=== PATIENT | female | born 1970 | race African-American/Black ===

== ENCOUNTER 2016-08-30 22:24 | Inpatient (IN) | payer OTHER ==
[2016-08-30 22:53] VITALS: BMI 30.6
[2016-08-31] MEDS ORDERED: HYDROmorphone HCL CARPU-JECT 1 MG/1 ML DISP.SYRIN IVPB PRN (00:51)
[2016-08-31] MEDS ORDERED: LACTATED RINGERS SOLUTION 1,000 ML IV SCH ×4 (01:00→14:38)
[2016-08-31] MEDS ORDERED: HYDROmorphone HCL CARPU-JECT 1 MG/1 ML DISP.SYRIN ONE (01:05)
--- NOTE | 2016-08-31 01:05 | PDOC ---
History of Present Illness <Doug Brown - Last Filed: 08/31/16 01:05> - History of Present Illness Initial Comments: 08/31/16 01:06 Patient is a 45 year old female with significant medical hx of HTN, uterine fibroids and endometriosis who has been sent to the ED by HEALTH SAFETY COORDINATOR for abdominal pain related to endometriosis. The patient is scheduled for surgery in the morning by Dr. Cid. The patient complains of ongoing fever for the past several weeks. HEALTH SAFETY COORDINATOR: Palak Martin MD <Ofelia Souza - Last Filed: 08/31/16 02:07> - General Chief Complaint: Vaginal Bleeding Stated Complaint: PCP ADMIT Time Seen by Provider: 08/30/16 23:33 Past History - Past Medical History HTN: Yes Other medical history: endometriosis - Immunization History Immunization Up to Date: Yes - Psycho/Social/Smoking Cessation Hx Anxiety: No Suicidal Ideation: No Smoking History: Never smoked Have you smoked in the past 12 months: No Information on smoking cessation initiated: No Hx Alcohol Use: No Drug/Substance Use Hx: No Substance Use Type: None <Doug Brown - Last Filed: 08/31/16 01:05> <Ofelia Souza - Last Filed: 08/31/16 02:07> - Past Medical History Allergies/Adverse Reactions: Allergies Allergy/AdvReac Type Severity Reaction Status Date / Time No Known Allergies Allergy Verified 08/30/16 22:53 Home Medications: Ambulatory Orders Diltiazem HCl [Diltiazem ER] 360 mg PO DAILY 07/14/15 Review of Systems - Review of Systems Comments:: 08/31/16 01:09 CONSTITUTIONAL: Fever. No chills, no fatigue EYES: No visual changes ENT: No ear pain, no sore throat CARDIOVASCULAR: No chest pain, no palpitations RESPIRATORY: No cough, no SOB GI: Abdominal pain. No nausea, no vomiting, no constipation, no diarrhea GENITOURINARY: No dysuria, no frequency, no hematuria MUSKULOSKELETAL: No backpain, no joint pain, no myalgias SKIN: No rash NEURO: No headache <Ofelia Souza - Last Filed: 08/31/16 02:07> *Physical Exam - Vital Signs Last Vital Signs Temp Pulse Resp BP Pulse Ox 99.7 F H 94 H 19 141/71 99 03/22/17 22:50 08/30/16 22:50 08/30/16 22:50 08/30/16 22:50 08/30/16 22:50 <Doug Brown - Last Filed: 08/31/16 01:05> - Vital Signs Last Vital Signs Temp Pulse Resp BP Pulse Ox 99.7 F H 94 H 19 141/71 99 08/30/16 22:50 08/30/16 22:50 08/30/16 22:50 08/30/16 22:50 08/30/16 22:50 - Physical Exam Comments: 08/31/16 01:09 CONSTITUTIONAL: Well-appearing; well-nourished; in no apparent distress HEAD: Normocephalic; atraumatic EYES: PERRL; EOM intact ENMT: External appears normal; normal oropharynx NECK: Supple; non-tender; no cervical lymphadenopathy CARD: Normal S1, S2; no murmurs, rubs, or gallops RESP: Normal chest excursion with respiration; breath sounds clear and equal bilaterally; no wheezes, rhonchi, or rales ABD: Soft, non-distended; non-tender; no palpable organomegaly, no palpable hernias EXT: Normal ROM in all four extremities; non-tender to palpation; distal pulses intact SKIN: Warm, dry, no rash NEURO: No focal neurological deficiencies. <Ofelia Souza - Last Filed: 08/31/16 02:07> Heart Score/ECG Review #1 08/31/16 02:07 Normal sinus rhythm at 97 bpm Normal ECG <Ofelia Souza - Last Filed: 08/31/16 02:07> ED Treatment Course - LABORATORY CBC & Chemistry Diagram: 08/31/16 00:52 08/31/16 00:52 <Ofelia Souza - Last Filed: 08/31/16 02:07> *DC/Admit/Observation/Transfer - Discharge Dispostion Admit: Yes <Doug Brown - Last Filed: 08/31/16 01:05> - Attestations Scribe Attestion: 08/31/16 01:10 Documentation prepared by Ofelia Souza, acting as medical videographer for Doug Brown MD. <Ofelia Souza - Last Filed: 08/31/16 02:07> Diagnosis at time of Disposition: Endometrioma Abdominal pain Qualifiers: Abdominal location: lower abdomen, unspecified Qualified Code(s): R10.30 - Lower abdominal pain, unspecified - Referrals Referrals: STAFF,NOT ON [Primary Care Provider] -
[2016-08-31 01:08] LABS: BASOPHIL 0.8 % (0-2.0); EOSINOPHIL 0.5 % (0-4.5); MCH 27.4 pg (25.7-33.7); MCHC 32.5 g/dl (32.0-36.0); MEAN CELL VOLUME 84.2 fl (80-96); MEAN PLT VOLUME 6.8 fl (7.5-11.1); PLATELET COUNT 469 K/MM3 (134-434); RDW 15.9 % (11.6-15.6); WHITE BLOOD COUNT 11.9 K/mm3 (4.0-10.0)
[2016-08-31 01:33] LABS: INR 1.42 (0.82-1.09); PROTHROMBIN TIME (PATIENT) 15.7 SEC (9.98-11.88)
[2016-08-31 01:46] LABS: ALBUMIN 2.5 g/dl (3.4-5.0); BILIRUBIN,TOTAL 0.2 mg/dL (0.2-1.0); CALCIUM 8.6 mg/dL (8.5-10.1); CREATININE 1.5 mg/dL (0.55-1.02); TOT PROT 7.1 g/dl (6.4-8.2)
--- NOTE | 2016-08-31 08:32 | HP ---
History & Physical Update - History History: No Change - Physical Physical: No Change - Assessment Assessment: No Change - Plan Plan: No Change
[2016-08-31] MEDS ORDERED: VASOPRESSIN 20 UNITS/ML VIAL IV ONE (10:11)
[2016-08-31] MEDS ORDERED: DEXAMETHASONE SOD PHOSPHATE 4 MG/1 ML VIAL ONE (10:22)
[2016-08-31] MEDS ORDERED: SODIUM CHLORIDE 0.9% P/F 10 ML VIAL IJ ONE (10:22)
[2016-08-31] MEDS ORDERED: KETOROLAC TROMETHAMINE 30 MG/1 ML VIAL ONE (10:22)
[2016-08-31] MEDS ORDERED: ONDANSETRON 4 MG/2 ML VIAL ONE (10:22)
[2016-08-31] MEDS ORDERED: ceFAZolin SODIUM 1 GM VIAL ONE ×2 (10:22→11:04)
[2016-08-31] MEDS ORDERED: MIDAZOLAM HCL 2 MG/2 ML SINGLE DOSE VIAL ONE (10:23)
[2016-08-31] MEDS ORDERED: ROCURONIUM BROMIDE 50 MG/5 ML VIAL ONE (10:23)
[2016-08-31] MEDS ORDERED: ceFAZolin SODIUM 1 GM VIAL IVPB ONE ×2 (10:41)
[2016-08-31] MEDS ORDERED: GENTAMICIN SO4 80 MG/2 ML VIAL ONE (11:18)
[2016-08-31] MEDS ORDERED: METRONIDAZOLE 500 MG PREMIXED 100 ML IVPB ONE (11:18)
[2016-08-31] MEDS ORDERED: METRONIDAZOLE 500 MG PREMIXED 500 MG/100 ML MG IVPB ONE (11:19)
[2016-08-31] MEDS ORDERED: GENTAMICIN 80MG PREMIX BAG IVPB ONE (11:19)
[2016-08-31] MEDS ORDERED: GLYCOPYRROLATE 0.2 MG/1 ML VIAL ONE (12:27)
[2016-08-31] MEDS ORDERED: NEOSTIGMINE METHYLSULFATE 0.5 MG/ML - 10 ML MDV ONE (12:27)
[2016-08-31] MEDS ORDERED: PROMETHAZINE HCL 25 MG/1 ML VIAL IVPUSH PRN ×2 (12:55→14:38)
[2016-08-31] MEDS ORDERED: PROMETHAZINE HCL 25 MG/1 ML VIAL IVPB PRN ×2 (12:55→14:38)
[2016-08-31] MEDS ORDERED: ONDANSETRON 4 MG/2 ML VIAL IVPUSH PRN ×4 (12:55→14:38)
[2016-08-31] MEDS ORDERED: DEXAMETHASONE SOD PHOSPHATE 4 MG/1 ML VIAL IVPUSH PRN ×2 (12:55→14:38)
[2016-08-31] MEDS ORDERED: HYDROmorphone *PCA* 10MG/50ML DISP.SYRIN PCA SCH (13:00)
[2016-08-31] MEDS ORDERED: HYDROmorphone *PCA* 10MG/50ML DISP.SYRIN PCA ONE (13:04)
[2016-08-31] MEDS ORDERED: IBUPROFEN 800 MG/8 ML IJ IVPB PRN (13:12)
[2016-08-31] MEDS ORDERED: BISACODYL 10 MG SUPP.RECT RC PRN ×2 (13:20→14:38)
[2016-08-31] MEDS ORDERED: SIMETHICONE 80 MG TAB.CHEW (FP) PO PRN ×2 (13:20→14:38)
--- NOTE | 2016-08-31 13:20 | OP ---
Operative Note - Note: Operative Date: 08/31/16 Pre-Operative Diagnosis: Pyosalpinx Ovarian endometrioma. Leiomyomatous Uterus Operation: Abdominal myomectomy. Bilateral salpingoophorectomy. enterolysis by Dr Noriega Findings: Ovarian abscess 10 cm bilateral tuboovarian abscess 9 cm myoma removed Surgeon: Veronica Cid Geropsychologist: Halley Braxton Anesthesiologist/FIOS LINE INSTALLER: Erwin Pena Jr. Anesthesia: General Estimated Blood Loss (mls): 1,200 Operative Report Dictated: Yes
--- NOTE | 2016-08-31 14:41 | OP ---
DATE OF OPERATION: 08/31/2016 PREOPERATIVE DIAGNOSIS: Tuboovarian abscess with fibroids. POSTOPERATIVE DIAGNOSIS: Tuboovarian abscess with fibroids. PROCEDURE: Lysis of adhesions, and I also did a rigid proctoscopy. SURGEON: Seun Noriega MD DETAILS OF THE OPERATION: I was called in as an emergent intraoperative consult from Dr. Cid as this patient had a large tuboovarian abscess which was densely adherent to the intestine. I came in and I was able to gently dissect the bowel off of the abscess. Once the abscess was fully mobilized, Dr. Cid was able to take it out. At this point, in the pelvis it appeared that the abscess had been densely adherent partially to the distal sigmoid/proximal rectum, and therefore, while there did not appear to be a hole, there was some abscess wall in the anterior portion, and to rule out a leak I performed a rigid proctoscopy by insufflating air, and then with the more proximal colon occluded, the bowel distended and there was no air in the pelvis or no bubbling once this was submerged in saline. The rest of the bowel appeared to be free of any obvious injuries. SEUN NORIEGA M.D. KATHY/[id number]
--- NOTE | 2016-08-31 17:05 | EKG ---
Test Reason : Blood Pressure : / mmHG Vent. Rate : 097 BPM Atrial Rate : 097 BPM P-R Int : 162 ms QRS Dur : 082 ms QT Int : 328 ms P-R-T Axes : 045 033 027 degrees QTc Int : 416 ms NORMAL SINUS RHYTHM NORMAL ECG NO PREVIOUS ECGS AVAILABLE Confirmed by SANDRA DODD MD ([id number]) on 08/31/2016 5:05:28 PM Referred By: Confirmed By:SANDRA DODD MD
[2016-08-31] MEDS: CEFAZOLIN 2 GM/D5W 50 ML IVPB SCH (17:23)
[2016-08-31] MEDS ORDERED: METRONIDAZOLE 500 MG PREMIXED 100 ML IVPB SCH (18:00)
[2016-08-31] MEDS ORDERED: CEFAZOLIN 2 GM/D5W 50 ML IVPB SCH (18:00)
[2016-08-31] MEDS: IBUPROFEN 800 MG/8 ML IJ IVPB PRN (18:37)
[2016-08-31] MEDS: METRONIDAZOLE 500 MG PREMIXED 100 ML IVPB SCH (20:17)
[2016-08-31 23:49] LABS: MCH 28.3 pg (25.7-33.7); MCHC 33.4 g/dl (32.0-36.0); MEAN CELL VOLUME 84.6 fl (80-96); PLATELET COUNT 344 K/MM3 (134-434); RDW 14.8 % (11.6-15.6); WHITE BLOOD COUNT 20.2 K/mm3 (4.0-10.0)
[2016-09-01] MEDS: METRONIDAZOLE 500 MG PREMIXED 100 ML IVPB SCH ×3 (01:42→18:00)
[2016-09-01] MEDS: CEFAZOLIN 2 GM/D5W 50 ML IVPB SCH (01:45)
[2016-09-01 03:31] LABS: ANISOCYTOSIS FEW; PLATELET ESTIMATE ADEQUATE (NORMAL)
[2016-09-01 07:40] LABS: MCH 28.2 pg (25.7-33.7); MCHC 33.3 g/dl (32.0-36.0); MEAN CELL VOLUME 84.7 fl (80-96); MEAN PLT VOLUME 7.1 fl (7.5-11.1); PLATELET COUNT 329 K/MM3 (134-434); RDW 14.7 % (11.6-15.6); WHITE BLOOD COUNT 17.8 K/mm3 (4.0-10.0)
--- NOTE | 2016-09-01 08:41 | PN ---
Progress Note (short form) - Note Progress Note: Anesthesia postop note 45 y/o F s/p GA for exploratory laparotomy, myomectomy, right salpingooophorectomy, dilaudid machine chain maker for postop pain management POD#1, vss, aaox3, pain well controlled overnight, just started po fluids. Will discontinue machine chain maker later in the day when patient tolerating po. No anesthesia complications.
[2016-09-01] MEDS ORDERED: PCA PUMP KEY 1 EACH EACH ONE ×2 (08:46→09:09)
[2016-09-01] MEDS: IBUPROFEN 800 MG/8 ML IJ IVPB PRN (08:46)
[2016-09-01] MEDS ORDERED: ENOXAPARIN NA (PORCINE) 40 MG/0.4 ML DISP.SYRIN SQ SCH (10:00)
[2016-09-01] MEDS: ENOXAPARIN NA (PORCINE) 40 MG/0.4 ML DISP.SYRIN SQ SCH (10:18)
--- NOTE | 2016-09-01 11:40 | PN ---
Progress Note, Physician History of Present Illness: Late entry fro 0930 am Pt seen/evaluated this a.m. Pt sitting up in bed eating clear liquid tray upon my arrival. Pt overall feels well. States pain is controlled. Tolerating clear diet this a.m. No n/v. Denies f/c/ROSENBERG. No N/V. Scant VB. Beal catheter draining clear yellow urine. Pt s/p 4 units PRBC yesterday. - Current Medication List Current Medications: Active Medications Bisacodyl (Dulcolax Suppository -) 10 mg RC DAILY PRN PRN Reason: CONSTIPATION Diltiazem HCl (Cardizem Cd -) 360 mg PO DAILY [facility] Last Admin: 09/01/16 10:31 Dose: 360 mg Enoxaparin Sodium (Lovenox -) 40 mg SQ DAILY [facility] Last Admin: 09/01/16 10:18 Dose: 40 mg Hydromorphone HCl (Dilaudid -) 4 mg PO Q4H PRN PRN Reason: PAIN Hydromorphone HCl (Dilaudid Basketball Assembler -) 10 mg CRACKLING PRESS OPERATOR CRACKLING PRESS OPERATOR DELIA PRN Reason: Protocol Stop: 09/07/16 12:55 Metronidazole (Flagyl 500mg Premixed Ivpb -) 100 mls @ 100 mls/hr IVPB Q8H-IV DELIA Last Admin: 09/01/16 10:00 Dose: 100 mls/hr Lactated Ringer's (Lactated Ringers Solution) 1,000 mls @ 125 mls/hr IV ASDIR DELIA Ibuprofen (Caldolor Injection -) 800 mg IVPB Q6H PRN PRN Reason: FEVER Last Admin: 09/01/16 08:46 Dose: 800 mg Simethicone (Mylicon -) 80 mg PO Q4H PRN PRN Reason: GAS - Objective Vital Signs: Vital Signs Temperature 99.4 F 09/01/16 09:32 Pulse Rate 101 H 09/01/16 09:32 Respiratory Rate 20 09/01/16 09:32 Blood Pressure 133/74 09/01/16 09:32 O2 Sat by Pulse Oximetry (%) 100 08/31/16 16:05 Constitutional: Yes: Well Nourished, No Distress, Calm Eyes: Yes: Conjunctiva Clear, EOM Intact, Ptosis HENT: Yes: Atraumatic Cardiovascular: Yes: Regular Rate and Rhythm Respiratory: Yes: Regular, CTA Bilaterally Gastrointestinal: Yes: Soft, Hypoactive Bowel Sounds Extremities: Yes: Other (bilateral SCDs in place) Wound/Incision: Yes: Dressing Dry and Intact Neurological: Yes: Alert, Oriented Psychiatric: Yes: Alert, Oriented Labs: CBC, BMP 09/01/16 06:35 INR, PTT INR 1.42 (0.82-1.09) H 08/31/16 00:52 Problem List - Problems (1) S/P myomectomy Code(s): Z98.890 - OTHER SPECIFIED POSTPROCEDURAL STATES (2) History of bilateral salpingo-oophorectomy (BSO) Code(s): Z90.722 - ACQUIRED ABSENCE OF OVARIES, BILATERAL (3) Pelvic abscess in female Assessment/Plan: s/p surgical removal Code(s): N73.9 - FEMALE PELVIC INFLAMMATORY DISEASE, UNSPECIFIED Assessment/Plan 45 y/o POD#1 s/p exploratory laparotomy, abdominal myomectomy, BSO and enterolysis (by Dr. Noriega from [facility]) for b/o TOA/pelvic abscess and uterine fibroids - AFVSs - b/l TOA, s/p removal, on IV antibiotics - CBC this a.m. with Hgb 10.1 - stable from last night, pt s/p 4 units PRBC - clear liquid diet today, advance with flatus/return of bowel function - remove beal today, await void - OOB/ambulation - Lovenox for VTE prophylaxis
[2016-09-01] MEDS ORDERED: HYDROmorphone HCL 2 MG TABLET PO PRN ×2 (13:33)
[2016-09-01] MEDS: HYDROmorphone *PCA* 10MG/50ML DISP.SYRIN PCA SCH ×2 (15:33→19:28)
[2016-09-01] MEDS ORDERED: FAMOTIDINE 20 MG/50 ML IVPB 50 ML IVPB SCH (16:00)
[2016-09-01] MEDS ORDERED: ONDANSETRON 4 MG/2 ML VIAL IVPB PRN (19:10)
[2016-09-01 19:36] LABS: MCH 28.4 pg (25.7-33.7); MCHC 33.6 g/dl (32.0-36.0); MEAN CELL VOLUME 84.3 fl (80-96); MEAN PLT VOLUME 7.1 fl (7.5-11.1); PLATELET COUNT 382 K/MM3 (134-434); RDW 15.1 % (11.6-15.6); WHITE BLOOD COUNT 19.1 K/mm3 (4.0-10.0)
[2016-09-01] MEDS: LACTATED RINGERS SOLUTION 1,000 ML IV SCH ×2 (20:16→22:13)
[2016-09-02] MEDS: METRONIDAZOLE 500 MG PREMIXED 100 ML IVPB SCH ×3 (01:50→18:36)
--- NOTE | 2016-09-02 03:41 | PN ---
Progress Note, Physician Chief Complaint: Pt with another episode of emesis - came to evaluate patient. History of Present Illness: Pt now post op day 2 from surgery. Was tolerating clear diet early yesterday a.m. Pt now with 2 episodes of emesis since 7pm on 09/01. No flatus yet. Nursing concerned for abdominal distention. Pt denies any abdominal pain. States the vomiting was liquid, possibly bilious. No CP/SOB/F/C/ROSENBERG. Otherwise feels well. - Current Medication List Current Medications: Active Medications Bisacodyl (Dulcolax Suppository -) 10 mg RC DAILY PRN PRN Reason: CONSTIPATION Diltiazem HCl (Cardizem Cd -) 360 mg PO DAILY [facility] Last Admin: 09/01/16 10:31 Dose: 360 mg Enoxaparin Sodium (Lovenox -) 40 mg SQ DAILY [facility] Last Admin: 09/01/16 10:18 Dose: 40 mg Hydromorphone HCl (Dilaudid -) 4 mg PO Q4H PRN PRN Reason: PAIN Metronidazole (Flagyl 500mg Premixed Ivpb -) 100 mls @ 100 mls/hr IVPB Q8H-IV DELIA Last Admin: 09/02/16 01:50 Dose: 100 mls/hr Lactated Ringer's (Lactated Ringers Solution) 1,000 mls @ 125 mls/hr IV ASDIR DELIA Last Admin: 09/01/16 22:13 Dose: 125 mls/hr Ibuprofen (Caldolor Injection -) 800 mg IVPB Q6H PRN PRN Reason: FEVER Last Admin: 09/01/16 08:46 Dose: 800 mg Ondansetron HCl (Zofran Injection) 4 mg IVPB Q6H PRN PRN Reason: NAUSEA AND/OR VOMITING Last Admin: 09/01/16 19:41 Dose: 4 mg Pantoprazole Sodium (Protonix 40mg Ivpb (Pre-Docked)) 40 mg IVPB DAILY [facility] Simethicone (Mylicon -) 80 mg PO Q4H PRN PRN Reason: GAS - Objective Vital Signs: Vital Signs Temperature 99.8 F H 09/02/16 02:00 Pulse Rate 100 H 09/02/16 02:00 Respiratory Rate 18 09/02/16 02:00 Blood Pressure 150/87 09/02/16 02:00 O2 Sat by Pulse Oximetry (%) 100 08/31/16 16:05 Constitutional: Yes: Well Nourished, No Distress, Calm Eyes: Yes: Conjunctiva Clear, EOM Intact HENT: Yes: Atraumatic, Normocephalic Neck: Yes: Supple, Trachea Midline Cardiovascular: Yes: Regular Rate and Rhythm Respiratory: Yes: Regular, CTA Bilaterally Gastrointestinal: Yes: Soft, Distention, Hypoactive Bowel Sounds (no bowel sounds appreciated on exam), Vomiting. No: Tenderness Wound/Incision: Yes: Clean/Dry, Well Approximated, Dressing Dry and Intact Neurological: Yes: Alert, Oriented Psychiatric: Yes: Alert, Oriented Labs: CBC, BMP 09/01/16 19:00 INR, PTT INR 1.42 (0.82-1.09) H 08/31/16 00:52 Problem List - Problems (1) S/P myomectomy Code(s): Z98.890 - OTHER SPECIFIED POSTPROCEDURAL STATES (2) History of bilateral salpingo-oophorectomy (BSO) Code(s): Z90.722 - ACQUIRED ABSENCE OF OVARIES, BILATERAL (3) Pelvic abscess in female Code(s): N73.9 - FEMALE PELVIC INFLAMMATORY DISEASE, UNSPECIFIED (4) Vomiting Code(s): R11.10 - VOMITING, UNSPECIFIED Assessment/Plan POD#2 s/p exploratory laparotomy, myomectomy, BSO, enterolysis for b/l TOA and fibroids - AFVSS - emesis X 2 and mild abdominal distention - suspect post op ileus. Pt has been NPO since 7pm. Will keep patient NPO at this point and continue IV fluids. Monitor bowel function. If pt continues to have nausea vomiting throughout the day today, consider flat plate of abdomen/obstruction series but I suspect the emesis is due to an ileus. Patient with no abdominal pain - do not suspect an obstruction at this time. - continue IV antibiotics - will switch to PO antibiotics after able to tolerate PO - encourage ambulation - Lovenox for VTE PPx
[2016-09-02] MEDS ORDERED: HYDROmorphone HCL CARPU-JECT 1 MG/1 ML DISP.SYRIN IM PRN (03:42)
[2016-09-02] MEDS: LACTATED RINGERS SOLUTION 1,000 ML IV SCH (09:00)
[2016-09-02] MEDS: PANTOPRAZOLE SODIUM 40 MG/100 ML PRE-DOCKED IVPB SCH (09:01)
[2016-09-02] MEDS: ENOXAPARIN NA (PORCINE) 40 MG/0.4 ML DISP.SYRIN SQ SCH (09:42)
--- NOTE | 2016-09-02 10:43 | CONSULT ---
Consultation: REQUESTING PROVIDER: Veronica Cid CONSULT REQUEST: We have been asked to medically evaluate this patient for abdominal pain. HISTORY OF PRESENT ILLNESS: This is a 45-year-old woman with a history of HTN, uterine fibroids, endometriosis who was admitted on 08/31 for abdominal pain. She underwent exploratory laparotomy on 08/31. She was found to have a 9 cm myoma and bilateral tubo-ovarian abscesses. Abdominal myomectomy, bilateral salpingo-oophorectomy and enterolysis were performed. She was transfused 4 units PRBCs and started on Ancef and Flagyl. Yesterday, she developed bilious vomiting and her abdomen was noted to be distended. She has not had flatus or a bowel movement since surgery. She was made NPO and given IV fluid. She denies having pain and nausea at this time. She says she feels uncomfortable. REVIEW OF SYSTEMS: CONSTITUTIONAL: Absent: fever, chills, diaphoresis, generalized weakness, malaise, loss of appetite, weight change HEENT: Absent: rhinorrhea, nasal congestion, throat pain, throat swelling, difficulty swallowing, mouth swelling, ear pain, eye pain, visual changes CARDIOVASCULAR: Absent: chest pain, syncope, palpitations, lightheadedness, peripheral edema RESPIRATORY: Absent: cough, shortness of breath, dyspnea with exertion, orthopnea, wheezing, stridor, hemoptysis GASTROINTESTINAL: Present: abdominal pain, abdominal distension, nausea, vomiting. Absent: diarrhea, melena, hematochezia GENITOURINARY: Absent: dysuria, frequency, urgency, hesitancy, hematuria, flank pain MUSCULOSKELETAL: Absent: myalgia, arthralgia, joint swelling, back pain, neck pain SKIN: Absent: rash, itching, pallor HEMATOLOGIC/IMMUNOLOGIC: Absent: easy bleeding, easy bruising, lymphadenopathy, frequent infections ENDOCRINE: Absent: unexplained weight gain, unexplained weight loss, heat intolerance, cold intolerance NEUROLOGIC: Absent: headache, focal weakness, paresthesias, dizziness, unsteady gait, seizure, mental status changes, bladder or bowel incontinence PSYCHIATRIC: Absent: anxiety, depression, suicidal or homicidal ideation, hallucinations. PHYSICAL EXAMINATION Vital Signs - 24 hr 09/01/16 09/01/16 09/01/16 13:42 17:45 21:48 Temperature 98.0 F 98.5 F 98.7 F Pulse Rate 95 H 103 H Respiratory 18 18 Rate Blood Pressure 133/59 152/87 09/02/16 09/02/16 09/02/16 02:00 06:00 08:03 Temperature 99.8 F H 100.1 F H 98.1 F Pulse Rate 100 H 99 H 92 H Respiratory 18 24 20 Rate Blood Pressure 150/87 132/71 147/77 GENERAL: Awake, alert, and fully oriented, in no acute distress. HEAD: Normal with no signs of trauma. EYES: Pupils equal, round and reactive to light, extraocular movements intact, sclerae anicteric, conjunctivae clear. EARS, NOSE, THROAT: Ears normal, nares patent, oropharynx clear without exudates. Moist mucous membranes. NECK: Normal range of motion, supple without lymphadenopathy, JVD, or masses. LUNGS: Breath sounds equal, clear to auscultation bilaterally. No wheezes, and no crackles. No accessory muscle use. HEART: Regular rate and rhythm, normal S1 and S2 without murmur, rub or gallop. ABDOMEN: Soft, mild diffuse tenderness, distended, hypoactive bowel sounds, no guarding, no rebound, no masses. No hepatomegaly or splenomegaly. MUSCULOSKELETAL: Normal range of motion at all joints. No bony deformities or tenderness. No CVA tenderness. UPPER EXTREMITIES: 2+ pulses, warm, well-perfused. No cyanosis. No clubbing. Cap refill <2 seconds. No peripheral edema. LOWER EXTREMITIES: 2+ pulses, warm, well-perfused. No calf tenderness. No peripheral edema. NEUROLOGICAL: Cranial nerves II-XII intact. Normal speech. Gait not observed. PSYCHIATRIC: Cooperative. Good eye contact. Appropriate mood and affect. SKIN: Warm, dry, normal turgor, no rashes or lesions noted. Laboratory Results - last 24 hr 08/31/16 09/01/16 08:50 19:00 WBC 19.1 H RBC 3.67 Hgb 10.4 L Hct 30.9 L MCV 84.3 MCHC 33.6 RDW 15.1 Plt Count 382 MPV 7.1 L Neutrophils % 91.0 H Lymphocytes % 8.0 D Monocytes % 1.0 L Eosinophils % 0.0 D Basophils % 0.0 Band Neutrophils 0.0 D Crossmatch See Detail Crossmatch IS Only See Detail Active Medications Generic Name Dose Route Start Last Admin Trade Name Freq PRN Reason Stop Dose Admin Bisacodyl 10 mg 08/31/16 14:38 09/02/16 10:02 Dulcolax Suppository - RC 10 mg DAILY PRN Administration CONSTIPATION Cefazolin Sodium 2 gm 09/02/16 10:00 09/02/16 09:38 Ancef 1gm Ivpb (Pre-Docked) IVPB 09/03/16 02:01 2 gm Q8H-IV DELIA Administration Diltiazem HCl 360 mg 09/01/16 10:00 09/01/16 10:31 Cardizem Cd - PO 360 mg DAILY DELIA Administration Enoxaparin Sodium 40 mg 09/01/16 10:00 09/02/16 09:42 Lovenox - SQ 40 mg DAILY DELIA Administration Hydromorphone HCl 4 mg 09/01/16 13:33 Dilaudid - PO Q4H PRN PAIN Hydromorphone HCl 1 mg 09/02/16 03:42 Dilaudid Injection - IM Q4H PRN PAIN Metronidazole 100 mls @ 100 mls/hr 08/31/16 18:00 09/02/16 01:50 Flagyl 500mg Premixed Ivpb - IVPB 100 mls/hr Q8H-IV DELIA Administration Lactated Ringer's 1,000 mls @ 125 mls/hr 08/31/16 14:38 09/02/16 09:00 Lactated Ringers Solution IV 125 mls/hr ASDIR DELIA Administration Ibuprofen 800 mg 08/31/16 14:38 09/01/16 08:46 Caldolor Injection - IVPB 800 mg Q6H PRN Administration FEVER Ondansetron HCl 4 mg 09/01/16 19:10 09/01/16 19:41 Zofran Injection IVPB 4 mg Q6H PRN Administration NAUSEA AND/OR VOMITING Pantoprazole Sodium 40 mg 09/02/16 10:00 09/02/16 09:01 Protonix 40mg Ivpb (Pre-Docked) IVPB 40 mg DAILY DELIA Administration Simethicone 80 mg 08/31/16 14:38 Mylicon - PO Q4H PRN GAS ASSESSMENT/PLAN: This is a 45-year-old woman with a history of HTN, uterine fibroids and endometriosis who was admitted for tubo-ovarian abscess and underwent BSO and myomectomy on 08/31. She has had abdominal distention with nausea and vomiting and no flatus or BM since the surgery. 1. Post-operative ileus - Continue NPO, IV fluid - Abdominal flat/upright x-rays - Ambulation 2. Sepsis secondary to bilateral tubo-ovarian abscesses - s/p bilateral salpingo-oophorectomy 08/31 - On Ancef, Flagyl - WBC 19.1 last night and had temp 100.1 this morning - if leukocytosis and temps persist, would recommend ID consult 3. Acute kidney injury secondary to sepsis - Continue IV fluid - Monitor creatinine 4. Uterine fibroid - s/p myomectomy 08/31 5. Anemia - Likely secondary to sepsis - Transfused 4 units PRBCs - Hemoglobin stable - continue to monitor 6. Hypertension - Continue Cardizem CD Thank you for this consultation. We will continue to follow the patient along with you.
[2016-09-02 11:08] LABS: ALBUMIN 2.1 g/dl (3.4-5.0)
[2016-09-02 11:11] LABS: BILIRUBIN,TOTAL 0.8 mg/dL (0.2-1.0); CALCIUM 8.6 mg/dL (8.5-10.1); CREATININE 1.2 mg/dL (0.55-1.02); TOT PROT 6.7 g/dl (6.4-8.2)
[2016-09-02] MEDS ORDERED: ACETAMINOPHEN 325 MG TABLET (FP) PO PRN (14:21)
[2016-09-02] MEDS: CEFAZOLIN 2 GM in DEXTROSE 5%-WATER - 100 ML IVPB SCH (17:55)
[2016-09-03] MEDS: LACTATED RINGERS SOLUTION 1,000 ML IV SCH ×2 (01:00→19:35)
[2016-09-03] MEDS: CEFAZOLIN 2 GM in DEXTROSE 5%-WATER - 100 ML IVPB SCH (01:49)
[2016-09-03] MEDS: METRONIDAZOLE 500 MG PREMIXED 100 ML IVPB SCH ×3 (02:57→17:36)
[2016-09-03 08:01] LABS: BASOPHIL 0.4 % (0-2.0); EOSINOPHIL 0.3 % (0-4.5); MCH 28.5 pg (25.7-33.7); MCHC 33.2 g/dl (32.0-36.0); MEAN CELL VOLUME 85.9 fl (80-96); MEAN PLT VOLUME 6.8 fl (7.5-11.1); NEUTROPHILS 83.6 % (42.8-82.8); PLATELET COUNT 391 K/MM3 (134-434); RDW 15.4 % (11.6-15.6); WHITE BLOOD COUNT 16.3 K/mm3 (4.0-10.0)
[2016-09-03 08:23] LABS: CALCIUM 7.9 mg/dL (8.5-10.1); CREATININE 0.9 mg/dL (0.55-1.02)
[2016-09-03] MEDS: PANTOPRAZOLE SODIUM 40 MG/100 ML PRE-DOCKED IVPB SCH (09:29)
[2016-09-03] MEDS: SODIUM CHLORIDE 1,000 ML IV SCH (09:29)
[2016-09-03] MEDS: ENOXAPARIN NA (PORCINE) 40 MG/0.4 ML DISP.SYRIN SQ SCH (10:23)
--- NOTE | 2016-09-03 11:02 | PN ---
Progress Note (SOAP) - Subjective Chief Complaint: Pt improving + BM +flatus Pt still with elevated wbc - Current Medications Current Medications: Active Medications Acetaminophen (Tylenol -) 650 mg PO Q4H PRN PRN Reason: FEVER OR PAIN Last Admin: 09/02/16 14:28 Dose: 650 mg Bisacodyl (Dulcolax Suppository -) 10 mg RC DAILY PRN PRN Reason: CONSTIPATION Last Admin: 09/02/16 10:02 Dose: 10 mg Diltiazem HCl (Cardizem Cd -) 360 mg PO DAILY [facility] Last Admin: 09/03/16 09:33 Dose: 360 mg Enoxaparin Sodium (Lovenox -) 40 mg SQ DAILY [facility] Last Admin: 09/03/16 10:23 Dose: 40 mg Hydromorphone HCl (Dilaudid -) 4 mg PO Q4H PRN PRN Reason: PAIN Hydromorphone HCl (Dilaudid Injection -) 1 mg IM Q4H PRN PRN Reason: PAIN Metronidazole (Flagyl 500mg Premixed Ivpb -) 100 mls @ 100 mls/hr IVPB Q8H-IV [facility] Last Admin: 09/03/16 10:23 Dose: 100 mls/hr Sodium Chloride (Normal Saline -) 1,000 mls @ 75 mls/hr IV ASDIR [facility] Last Admin: 09/03/16 09:29 Dose: 75 mls/hr Ondansetron HCl (Zofran Injection) 4 mg IVPB Q6H PRN PRN Reason: NAUSEA AND/OR VOMITING Last Admin: 09/01/16 19:41 Dose: 4 mg Pantoprazole Sodium (Protonix 40mg Ivpb (Pre-Docked)) 40 mg IVPB DAILY [facility] Last Admin: 09/03/16 09:29 Dose: 40 mg Simethicone (Mylicon -) 80 mg PO Q4H PRN PRN Reason: GAS - Objective Vital Signs: Vital Signs Temperature 99.3 F 09/03/16 08:57 Pulse Rate 100 H 09/03/16 08:57 Respiratory Rate 20 09/03/16 08:57 Blood Pressure 144/84 09/03/16 08:57 O2 Sat by Pulse Oximetry (%) 100 08/31/16 16:05 Constitutional: Yes: Well Nourished, No Distress Neck: Yes: WNL Gastrointestinal: Yes: WNL, Soft, Abdomen, Obese Musculoskeletal: Yes: WNL Extremities: Yes: WNL Edema: No Integumentary: Yes: WNL Wound/Incision: Yes: Steri Strips, Open to air Neurological: Yes: WNL, Alert, Oriented Labs Lab Results: CBC, BMP 09/03/16 07:30 09/03/16 07:30 Problem List - Problems (1) Abdominal pain Code(s): R10.9 - UNSPECIFIED ABDOMINAL PAIN Qualifiers: Abdominal location: lower abdomen, unspecified Qualified Code(s): R10.30 - Lower abdominal pain, unspecified (2) S/P myomectomy Code(s): Z98.890 - OTHER SPECIFIED POSTPROCEDURAL STATES (3) Sepsis Code(s): A41.9 - SEPSIS, UNSPECIFIED ORGANISM Assessment/Plan Sepsis due elevated WBC and sp ruptured TOA removal & myomectomy POD3 Postop Ileus - resolved with BM Anemia sp transfusions Hypertension Plan ID consult - may change to Zosyn continue abs Continue meds for HTN
--- NOTE | 2016-09-03 11:27 | PN ---
Progress Note, Physician Chief Complaint: ID Operative findings noted Full note dictated Cefazolin Now just metronidazole Alert NAD - Current Medication List Current Medications: Active Medications Acetaminophen (Tylenol -) 650 mg PO Q4H PRN PRN Reason: FEVER OR PAIN Last Admin: 09/02/16 14:28 Dose: 650 mg Bisacodyl (Dulcolax Suppository -) 10 mg RC DAILY PRN PRN Reason: CONSTIPATION Last Admin: 09/02/16 10:02 Dose: 10 mg Diltiazem HCl (Cardizem Cd -) 360 mg PO DAILY [facility] Last Admin: 09/03/16 09:33 Dose: 360 mg Enoxaparin Sodium (Lovenox -) 40 mg SQ DAILY [facility] Last Admin: 09/03/16 10:23 Dose: 40 mg Hydromorphone HCl (Dilaudid -) 4 mg PO Q4H PRN PRN Reason: PAIN Hydromorphone HCl (Dilaudid Injection -) 1 mg IM Q4H PRN PRN Reason: PAIN Metronidazole (Flagyl 500mg Premixed Ivpb -) 100 mls @ 100 mls/hr IVPB Q8H-IV [facility] Last Admin: 09/03/16 10:23 Dose: 100 mls/hr Sodium Chloride (Normal Saline -) 1,000 mls @ 75 mls/hr IV ASDIR [facility] Last Admin: 09/03/16 09:29 Dose: 75 mls/hr Ondansetron HCl (Zofran Injection) 4 mg IVPB Q6H PRN PRN Reason: NAUSEA AND/OR VOMITING Last Admin: 09/01/16 19:41 Dose: 4 mg Pantoprazole Sodium (Protonix 40mg Ivpb (Pre-Docked)) 40 mg IVPB DAILY [facility] Last Admin: 09/03/16 09:29 Dose: 40 mg Simethicone (Mylicon -) 80 mg PO Q4H PRN PRN Reason: GAS - Objective Vital Signs: Vital Signs Temperature 99.3 F 09/03/16 08:57 Pulse Rate 100 H 09/03/16 08:57 Respiratory Rate 20 09/03/16 08:57 Blood Pressure 144/84 09/03/16 08:57 O2 Sat by Pulse Oximetry (%) 100 08/31/16 16:05 Constitutional: Yes: No Distress HENT: No: Thrush Cardiovascular: Yes: Regular Rate and Rhythm, S1, S2 Respiratory: Yes: WNL, Regular, CTA Bilaterally, Rales Gastrointestinal: Yes: Soft, Tenderness, Other (incision dewey) Extremities: No: Cold, Cool, Cyanosis Labs: CBC, BMP 09/03/16 07:30 09/03/16 07:30 INR, PTT INR 1.42 (0.82-1.09) H 08/31/16 00:52 Problem List - Problems (1) History of bilateral salpingo-oophorectomy (BSO) Code(s): Z90.722 - ACQUIRED ABSENCE OF OVARIES, BILATERAL (2) Pelvic abscess in female Code(s): N73.9 - FEMALE PELVIC INFLAMMATORY DISEASE, UNSPECIFIED (3) S/P myomectomy Code(s): Z98.890 - OTHER SPECIFIED POSTPROCEDURAL STATES Assessment/Plan Laboratory Tests 08/31/16 09/03/16 09/03/16 00:52 07:30 07:30 WBC 16.3 H Hgb 9.7 L Hct 29.1 L Plt Count 391 Neutrophils % 83.6 H Eosinophils % 0.3 D Basophils % 0.4 D INR 1.42 H BUN 15 Creatinine 0.9 D Advise Blood cultures Urine culture ESR CRP Urine screen for STDs HIV already done recently is negative Empiric therapy Ceftriaxone 2 grs daily along with metrondiazole and doxycline 100mg IVP q12 Birdie HUERTA
[2016-09-03] MEDS: CEFTRIAXONE 2 GM in DEXTROSE 5%-WATER - 100 ML IVPB SCH (12:44)
[2016-09-03] MEDS: DOXYCYCLINE INJECTION 100 MG in DEXTROSE 5%-WATER - 100 ML IVPB SCH ×2 (13:20→21:20)
--- NOTE | 2016-09-03 15:01 | CONS ---
DATE OF CONSULTATION: DATE OF DICTATION: 09/03/2016 This is a 45-year-old female who I am asked to see day 3 postoperative. The patient has a history of intermittent fevers, which have been going on since the beginning of August. She was initially seen a week later on or around the of this month by her primary medical doctor, who told her that her labs were abnormal and that she should be admitted. She then went to the [facility] emergency room, where she was admitted for IV antibiotics over 5 days. She does not know the results of any of her tests there and became disillusioned with the care and notes that she signed out against medical advice. When asked, she states that she was never given a specific diagnosis as to what was wrong with her, not did she report having had any imaging studies done while in the hospital. She went home and continued to feel poorly with fever. She went back to her medical doctor, who called Dr. Cid after a CAT scan was performed, which apparently was abnormal, prompting her to be admitted here, where she underwent surgery on August 31, with Nursing Scheduler findings of a pyosalpinx, ovarian endometrioma, and leiomyomatous uterus. Surgery included abdominal myomectomy, bilateral salpingo-oophorectomy, and enterolysis by Dr. Noriega. An ovarian abscess 10 cm in size along with bilateral tubo-ovarian abscesses was found. I find no record of cultures having been done intraoperatively. She has been on cefazolin and metronidazole and has had a persistent leukocytosis. She notes being sexually active and was told at [facility] that she was HIV negative during her recent admission. She is not diabetic, denies recent travel, has no other known hobbies, and notes a pet dog at home. She has no children, does not smoke, nor does she uses drugs. She has no other significant past medical history, and family history and review of systems are reviewed and noncontributory. PHYSICAL EXAMINATION: Vital Signs: She had a temperature max of 100.4, currently 99.3. The pulse was 100. Blood pressure 144/84. Respirations 20. General: Alert and oriented. HEENT: No oral thrush. Neck: Supple with no lymphadenopathy. Lungs: Clear to percussion with few rales noted at the left base. Heart: S1, S2. Regular rhythm without audible murmur. Abdomen: Soft, nontender. Distended. Surgical incision noted. Extremities: No clubbing, cyanosis or edema. White count 16.3, hemoglobin 9.7, platelets of 391, 84% polys, 10 lymphs, 5 monocytes. BUN 15, creatinine 0.9. ASSESSMENT: A 45-year-old female with history of intermittent fever and leukocytosis since at least the beginning of August, status post surgery September 03 with findings of large ovarian abscess and bilateral tubo-ovarian abscesses. She had pyosalpinx noted with surgery including myomectomy and bilateral salpingo-oophorectomy as well as enterolysis per Dr. Noriega. Would treat for pelvic [place] including possible STD organisms. Will obtain blood cultures albeit on antibiotics, ESR, CRP. She has been HIV tested negative. Empiric therapy with ceftriaxone 2 g daily, metronidazole 500 mg q.8 hours, and doxycycline for Chlamydia coverage, urine screening for STDs will be performed with probes for GC and Chlamydia. LUCERO RECINOS M.D. [id number]
--- NOTE | 2016-09-03 17:04 | PN ---
Physical Exam: SUBJECTIVE: Patient seen and examined. She said she doesn't feel like herself. Has decreased appetite, no chills, no fever. OBJECTIVE: Vital Signs Period Temp Pulse Resp BP Sys/Vann Pulse Ox Last 24 Hr 98.2 F-99.4 F 94-102 20-20 130-144/80-84 PE Neuro: alert, awake, cn 2-12intact Pulm: CTAB CV: s1 s2 rrr no mrg Abd: lower abd tenderness, steri strips in place : pad in place Ext: warm no le edema Laboratory Results - last 24 hr 08/31/16 09/03/16 09/03/16 08:50 07:30 07:30 WBC 16.3 H RBC 3.38 L Hgb 9.7 L Hct 29.1 L MCV 85.9 MCHC 33.2 RDW 15.4 Plt Count 391 MPV 6.8 L Neutrophils % 83.6 H Lymphocytes % 10.4 D Monocytes % 5.3 D Eosinophils % 0.3 D Basophils % 0.4 D Sodium 142 Potassium 4.1 Chloride 107 Carbon Dioxide 26 Anion Gap 9 BUN 15 Creatinine 0.9 D Random Glucose 93 Calcium 7.9 L C-Reactive Protein Blood Type A POSITIVE Crossmatch See Detail Crossmatch IS Only See Detail 09/03/16 12:00 WBC RBC Hgb Hct MCV MCHC RDW Plt Count MPV Neutrophils % Lymphocytes % Monocytes % Eosinophils % Basophils % Sodium Potassium Chloride Carbon Dioxide Anion Gap BUN Creatinine Random Glucose Calcium C-Reactive Protein 16.6 H Blood Type Crossmatch Crossmatch IS Only Active Medications Generic Name Dose Route Start Last Admin Trade Name David PRN Reason Stop Dose Admin Acetaminophen 650 mg 09/02/16 14:21 09/02/16 14:28 Tylenol - PO 650 mg Q4H PRN Administration FEVER OR PAIN Bisacodyl 10 mg 08/31/16 14:38 09/02/16 10:02 Dulcolax Suppository - RC 10 mg DAILY PRN Administration CONSTIPATION Diltiazem HCl 360 mg 09/01/16 10:00 09/03/16 09:33 Cardizem Cd - PO 360 mg DAILY [facility] Administration Enoxaparin Sodium 40 mg 09/01/16 10:00 09/03/16 10:23 Lovenox - SQ 40 mg DAILY [facility] Administration Hydromorphone HCl 4 mg 09/01/16 13:33 Dilaudid - PO Q4H PRN PAIN Hydromorphone HCl 1 mg 09/02/16 03:42 Dilaudid Injection - IM Q4H PRN PAIN Metronidazole 100 mls @ 100 mls/hr 08/31/16 18:00 09/03/16 10:23 Flagyl 500mg Premixed Ivpb - IVPB 100 mls/hr Q8H-IV [facility] Administration Sodium Chloride 1,000 mls @ 75 mls/hr 09/03/16 09:00 09/03/16 09:29 Normal Saline - IV 75 mls/hr ASDIR [facility] Administration Ceftriaxone Sodium 2 gm/ 100 mls @ 200 mls/hr 09/03/16 11:45 09/03/16 12:44 Dextrose IVPB 200 mls/hr DAILY [facility] Administration Doxycycline Hyclate 100 mg/ 100 mls @ 50 mls/hr 09/03/16 11:45 09/03/16 13:20 Dextrose IVPB 50 mls/hr BID [facility] Administration Ondansetron HCl 4 mg 09/01/16 19:10 09/01/16 19:41 Zofran Injection IVPB 4 mg Q6H PRN Administration NAUSEA AND/OR VOMITING Pantoprazole Sodium 40 mg 09/02/16 10:00 09/03/16 09:29 Protonix 40mg Ivpb (Pre-Docked) IVPB 40 mg DAILY [facility] Administration Simethicone 80 mg 08/31/16 14:38 Mylicon - PO Q4H PRN GAS Assessment: 45 year old female with a history of HTN, uterine fibroids and endometriosis admitted for tubo-ovarian abscess and underwent BSO and myomectomy on 08/31. She has had abdominal distention with nausea and vomiting and no flatus or BM since the surgery. Plan: 1. Post-operative ileus - Advanced to clears - Positive bowel movement - Abd xray with multiple air fluid levels to stomach and transverse colon - Ambulation 2. Sepsis secondary to bilateral tubo-ovarian abscesses - s/p bilateral salpingo-oophorectomy 08/31 - ID switch to Flagyl 500mg TID, doxycycline 100mg BID, ceftriaxone 2gm daily - Monitor WBC - No fevers today - Cont gentle fluids 3. Acute kidney injury secondary to sepsis - Resolved 4. Uterine fibroid - s/p myomectomy 3/23 5. Anemia - Likely secondary to sepsis; now stable - Transfused 4 units PRBCs 6. Hypertension - Keep fluids for now, as poor appetite, stop if BP rising and recheck - Continue Cardizem CD Thank you for this consultation, will sign off Please call back as needed Visit type - Emergency Visit Emergency Visit: Yes ED Registration Date: 08/31/16 Care time: The patient presented to the Emergency Department on the above date and was hospitalized for further evaluation of their emergent condition. - New Patient This patient is new to me today: Yes Date on this admission: 09/03/16 - Critical Care Critical Care patient: No
[2016-09-04] MEDS: METRONIDAZOLE 500 MG PREMIXED 100 ML IVPB SCH ×3 (01:13→19:53)
[2016-09-04] MEDS: SODIUM CHLORIDE 1,000 ML IV SCH ×2 (05:41→09:00)
[2016-09-04 07:36] LABS: BASOPHIL 1.2 % (0-2.0); EOSINOPHIL 0.7 % (0-4.5); MCH 28.9 pg (25.7-33.7); MCHC 33.3 g/dl (32.0-36.0); MEAN CELL VOLUME 86.7 fl (80-96); NEUTROPHILS 77.6 % (42.8-82.8); PLATELET COUNT 382 K/MM3 (134-434); RDW 15.5 % (11.6-15.6); WHITE BLOOD COUNT 11.5 K/mm3 (4.0-10.0)
--- NOTE | 2016-09-04 08:06 | PATH ---
Surgical Pathology Report Patient Name: LORI DAVISON [facility]. Rec. #: [id number] /Age/Gender: 1970 (Age: 45) / F Account: [id number] Location: [facility] OBS/LABORATORY SCIENTIST Taken: 08/31/2016 Received: 08/31/2016 Reported: 09/04/2016 Physicians: Veronica Cid M.D. Specimen(s) Received A: ADNEXAL MASS/OVARY B: RIGHT FALLOPIAN TUBE C: ABSCESS/OVARY D: FIBROID Clinical History Abdominal pain, tubal ovarian adhesions, leiomyoma uterus Final Diagnosis A. ADNEXAL MASS/POSSIBLY OVARY, EXCISION: PORTION OF FALLOPIAN TUBE WITH CHRONIC SALPINGITIS, HYDROSALPINX AND EXTENSIVE FIBROVASCULAR TUBO-OVARIAN ADHESIONS. NO MALIGNANCY IDENTIFIED. B. FALLOPIAN TUBE, RIGHT SALPINGECTOMY: FALLOPIAN TUBE WITH ACTIVE AND CHRONIC SALPINGITIS, MARKED HYDROSALPINX, FOCAL ENDOMETRIOSIS AND EXTENSIVE FIBROVASCULAR AND FIBRINOHEMORRHAGIC TUBO-OVARIAN ADHESIONS. NO MALIGNANCY IDENTIFIED. C. ABSCESS/POSSIBLY OVARY, EXCISION: SEGMENT OF FALLOPIAN TUBE WITH MARKED ACTIVE INFLAMMATION AND PYOSALPINX WITH ABSCESS FORMATION, EVIDENCE OF ENDOMETRIOSIS/ENDOMETRIOTIC CYST AND EXTENSIVE FIBROVASCULAR ADHESIONS. NO MALIGNANCY IDENTIFIED. D. FIBROIDS, ABDOMINAL MYOMECTOMY: LEIOMYOMATA WITH DEGENERATIVE CHANGES (LARGEST 10.5 CM). Electronically Signed Kvng Cortez M.D. Gross Description A. Received in formalin labeled "unclear adnexal mass possible ovary" is a 4.5 x 2.2 x 2.0 cm mccormick-pink, irregular, unoriented portion of soft tissue. The outer surface displays fibrous adhesions. Sectioning reveals edematous soft tissue. No definite fallopian tube or ovarian parenchyma is identified grossly. Boilermaker'S Assistant sections are submitted in 4 cassettes. B. Received in formalin labeled "right fallopian tube" is a 6 cm in length fimbriated portion of fallopian tube. The outer surface is mccormick-pink and smooth. Sectioning reveals cystic-appearing, edematous soft tissue surrounding a fallopian tube lumen. Boilermaker'S Assistant sections are submitted in 6 cassettes as follows: 1-7-vspntsst fimbria; 3-5-ediniuwfh tube lumen with surrounding soft tissue; 1-8-svifpyuyzy edematous, cystic tissue. C. Received in formalin labeled "abscess possible ovary" is a 7.5 x 7.3 x 4.0 cm previously opened cystic mass with fibrotic denney. The outer surface displays an attached 5 cm in length portion of fallopian tube. Sectioning of the fallopian tube displays a focally hemorrhagic lumen. The lumen is surrounded by edematous soft tissue. No fimbria are identified. The attached mass displays a cystic lumen. The inner lining of the mass displays mccormick-mejia exudate. Boilermaker'S Assistant sections are submitted in 7 cassettes as follows: 1-2-cross sections of fallopian tube; 3-7-adnexal mass. D. Received in formalin labeled "fibroids" is a 467 g aggregate of 6 firm to rubbery nodules, consistent with fibroids. The fibroids range from 1.8-10.5 cm in greatest dimension. Sectioning reveals foci of degeneration within all 6 fibroids. Boilermaker'S Assistant sections are submitted in 10 cassettes as follows: 1-5-smaller fibroids; 9-09-qxpzxyy fibroid. 08/31/2016 saudi08/31/2016
[2016-09-04 08:17] LABS: CALCIUM 7.8 mg/dL (8.5-10.1); CREATININE 0.6 mg/dL (0.55-1.02); MAGNESIUM 1.6 mg/dL (1.8-2.4)
[2016-09-04] MEDS: CEFTRIAXONE 2 GM in DEXTROSE 5%-WATER - 100 ML IVPB SCH (09:21)
[2016-09-04] MEDS: ENOXAPARIN NA (PORCINE) 40 MG/0.4 ML DISP.SYRIN SQ SCH (09:25)
[2016-09-04] MEDS ORDERED: MAGNESIUM SULF 50% (8.12 MEQ/2 ML-1 GM VIAL) IVPB ONE (09:30)
[2016-09-04] MEDS: PANTOPRAZOLE SODIUM 40 MG/100 ML PRE-DOCKED IVPB SCH (10:00)
--- NOTE | 2016-09-04 10:24 | PN ---
Progress Note, Physician Chief Complaint: ID Ceftriaxone metronidazole Doxycyline day1 Post op day 4 Subjective improvement - Current Medication List Current Medications: Active Medications Acetaminophen (Tylenol -) 650 mg PO Q4H PRN PRN Reason: FEVER OR PAIN Last Admin: 09/02/16 14:28 Dose: 650 mg Bisacodyl (Dulcolax Suppository -) 10 mg RC DAILY PRN PRN Reason: CONSTIPATION Last Admin: 09/02/16 10:02 Dose: 10 mg Diltiazem HCl (Cardizem Cd -) 360 mg PO DAILY [facility] Last Admin: 09/04/16 09:20 Dose: 360 mg Enoxaparin Sodium (Lovenox -) 40 mg SQ DAILY [facility] Last Admin: 09/04/16 09:25 Dose: Not Given Hydromorphone HCl (Dilaudid -) 4 mg PO Q4H PRN PRN Reason: PAIN Hydromorphone HCl (Dilaudid Injection -) 1 mg IM Q4H PRN PRN Reason: PAIN Metronidazole (Flagyl 500mg Premixed Ivpb -) 100 mls @ 100 mls/hr IVPB Q8H-IV [facility] Last Admin: 09/04/16 01:13 Dose: 100 mls/hr Sodium Chloride (Normal Saline -) 1,000 mls @ 75 mls/hr IV ASDIR [facility] Last Admin: 09/04/16 05:41 Dose: 75 mls/hr Ceftriaxone Sodium 2 gm/ (Dextrose) 100 mls @ 200 mls/hr IVPB DAILY [facility] Last Admin: 09/04/16 09:21 Dose: 200 mls/hr Doxycycline Hyclate 100 mg/ (Dextrose) 100 mls @ 50 mls/hr IVPB BID [facility] Last Admin: 09/03/16 21:20 Dose: 50 mls/hr Ondansetron HCl (Zofran Injection) 4 mg IVPB Q6H PRN PRN Reason: NAUSEA AND/OR VOMITING Last Admin: 09/01/16 19:41 Dose: 4 mg Pantoprazole Sodium (Protonix 40mg Ivpb (Pre-Docked)) 40 mg IVPB DAILY [facility] Last Admin: 09/03/16 09:29 Dose: 40 mg Simethicone (Mylicon -) 80 mg PO Q4H PRN PRN Reason: GAS - Objective Vital Signs: Vital Signs Temperature 98.4 F 09/04/16 08:56 Pulse Rate 90 09/04/16 08:56 Respiratory Rate 18 09/04/16 08:56 Blood Pressure 143/83 09/04/16 08:56 O2 Sat by Pulse Oximetry (%) 100 08/31/16 16:05 Constitutional: Yes: Well Nourished Eyes: Yes: WNL, Conjunctiva Clear HENT: Yes: WNL, Atraumatic Neck: Yes: WNL, Supple Cardiovascular: Yes: Regular Rate and Rhythm, S1, S2. No: Murmur Respiratory: Yes: WNL, Regular, CTA Bilaterally, Diminished Gastrointestinal: Yes: Soft, Tenderness, Other (Incision) Edema: No Labs: CBC, BMP 09/04/16 06:15 09/04/16 06:15 INR, PTT INR 1.42 (0.82-1.09) H 08/31/16 00:52 Problem List - Problems (1) History of bilateral salpingo-oophorectomy (BSO) Code(s): Z90.722 - ACQUIRED ABSENCE OF OVARIES, BILATERAL (2) Pelvic abscess in female Code(s): N73.9 - FEMALE PELVIC INFLAMMATORY DISEASE, UNSPECIFIED (3) S/P myomectomy Code(s): Z98.890 - OTHER SPECIFIED POSTPROCEDURAL STATES Assessment/Plan Microbiology Laboratory Tests 09/03/16 09/03/16 09/04/16 12:00 12:30 06:15 WBC Hgb Plt Count ESR Pending BUN Creatinine C-Reactive Protein 16.6 H Chlamydia Competition Pending N. gonorrhoeae (FABRICE) Pending 09/04/16 09/04/16 06:15 06:15 WBC 11.5 H Hgb 9.4 L Plt Count 382 ESR BUN 10 D Creatinine 0.6 D C-Reactive Protein Chlamydia Competition N. gonorrhoeae (FABRICE) Assessment Post op drainage of tuboovarian abscess/ Myomectomy ? STD related Recovering well Plan Continue current therapy antibiotics Cultures should be negative as obtained post several days antibiotics Plan to treat her few more days with IV ANTIBIOTICS Birdie HUERTA
[2016-09-04] MEDS: DOXYCYCLINE INJECTION 100 MG in DEXTROSE 5%-WATER - 100 ML IVPB SCH ×2 (10:43→22:06)
--- NOTE | 2016-09-04 10:58 | PN ---
Progress Note, Physician Chief Complaint: no appetite History of Present Illness: patient with large BM. less distended. postop pain controlled. not using alot of pain medication. ambulatory. no appetite. wbc now 11 - Current Medication List Current Medications: Active Medications Acetaminophen (Tylenol -) 650 mg PO Q4H PRN PRN Reason: FEVER OR PAIN Last Admin: 09/02/16 14:28 Dose: 650 mg Bisacodyl (Dulcolax Suppository -) 10 mg RC DAILY PRN PRN Reason: CONSTIPATION Last Admin: 09/02/16 10:02 Dose: 10 mg Diltiazem HCl (Cardizem Cd -) 360 mg PO DAILY [facility] Last Admin: 09/04/16 09:20 Dose: 360 mg Enoxaparin Sodium (Lovenox -) 40 mg SQ DAILY [facility] Last Admin: 09/04/16 09:25 Dose: Not Given Hydromorphone HCl (Dilaudid -) 4 mg PO Q4H PRN PRN Reason: PAIN Hydromorphone HCl (Dilaudid Injection -) 1 mg IM Q4H PRN PRN Reason: PAIN Metronidazole (Flagyl 500mg Premixed Ivpb -) 100 mls @ 100 mls/hr IVPB Q8H-IV [facility] Last Admin: 09/04/16 01:13 Dose: 100 mls/hr Sodium Chloride (Normal Saline -) 1,000 mls @ 75 mls/hr IV ASDIR [facility] Last Admin: 09/04/16 05:41 Dose: 75 mls/hr Ceftriaxone Sodium 2 gm/ (Dextrose) 100 mls @ 200 mls/hr IVPB DAILY [facility] Last Admin: 09/04/16 09:21 Dose: 200 mls/hr Doxycycline Hyclate 100 mg/ (Dextrose) 100 mls @ 50 mls/hr IVPB BID [facility] Last Admin: 09/04/16 10:43 Dose: 50 mls/hr Ondansetron HCl (Zofran Injection) 4 mg IVPB Q6H PRN PRN Reason: NAUSEA AND/OR VOMITING Last Admin: 09/01/16 19:41 Dose: 4 mg Pantoprazole Sodium (Protonix 40mg Ivpb (Pre-Docked)) 40 mg IVPB DAILY [facility] Last Admin: 09/03/16 09:29 Dose: 40 mg Simethicone (Mylicon -) 80 mg PO Q4H PRN PRN Reason: GAS - Objective Vital Signs: Vital Signs Temperature 98.4 F 09/04/16 08:56 Pulse Rate 90 09/04/16 08:56 Respiratory Rate 18 09/04/16 08:56 Blood Pressure 143/83 09/04/16 08:56 O2 Sat by Pulse Oximetry (%) 100 08/31/16 16:05 Constitutional: Yes: No Distress, Calm Gastrointestinal: Yes: Soft, Distention, Tenderness (rlq, near incision.) Labs: CBC, BMP 09/04/16 06:15 09/04/16 06:15 INR, PTT INR 1.42 (0.82-1.09) H 08/31/16 00:52 Problem List - Problems (1) Pelvic abscess in female Assessment/Plan: s/p BENITO for TOA ileus resolving advance to regular diet overall seems improving Code(s): N73.9 - FEMALE PELVIC INFLAMMATORY DISEASE, UNSPECIFIED
[2016-09-05] MEDS: METRONIDAZOLE 500 MG PREMIXED 100 ML IVPB SCH ×3 (01:59→17:29)
--- NOTE | 2016-09-05 08:53 | PN ---
Progress Note, Physician Chief Complaint: Pt seen/evaluated. Feels better today. +BM, +flatus. Voiding, ambulating. Afebrile. Tolerating some regular diet. Abdomen less distended. - Current Medication List Current Medications: Active Medications Acetaminophen (Tylenol -) 650 mg PO Q4H PRN PRN Reason: FEVER OR PAIN Last Admin: 09/02/16 14:28 Dose: 650 mg Bisacodyl (Dulcolax Suppository -) 10 mg RC DAILY PRN PRN Reason: CONSTIPATION Last Admin: 09/02/16 10:02 Dose: 10 mg Diltiazem HCl (Cardizem Cd -) 360 mg PO DAILY [facility] Last Admin: 09/04/16 09:20 Dose: 360 mg Enoxaparin Sodium (Lovenox -) 40 mg SQ DAILY [facility] Last Admin: 09/04/16 09:25 Dose: Not Given Hydromorphone HCl (Dilaudid -) 4 mg PO Q4H PRN PRN Reason: PAIN Hydromorphone HCl (Dilaudid Injection -) 1 mg IM Q4H PRN PRN Reason: PAIN Metronidazole (Flagyl 500mg Premixed Ivpb -) 100 mls @ 100 mls/hr IVPB Q8H-IV [facility] Last Admin: 09/05/16 01:59 Dose: 100 mls/hr Sodium Chloride (Normal Saline -) 1,000 mls @ 75 mls/hr IV ASDIR [facility] Last Admin: 09/04/16 09:00 Dose: Not Given Ceftriaxone Sodium 2 gm/ (Dextrose) 100 mls @ 200 mls/hr IVPB DAILY [facility] Last Admin: 09/04/16 09:21 Dose: 200 mls/hr Doxycycline Hyclate 100 mg/ (Dextrose) 100 mls @ 50 mls/hr IVPB BID [facility] Last Admin: 09/04/16 22:06 Dose: 50 mls/hr Ondansetron HCl (Zofran Injection) 4 mg IVPB Q6H PRN PRN Reason: NAUSEA AND/OR VOMITING Last Admin: 09/01/16 19:41 Dose: 4 mg Pantoprazole Sodium (Protonix 40mg Ivpb (Pre-Docked)) 40 mg IVPB DAILY [facility] Last Admin: 09/04/16 10:00 Dose: 40 mg Simethicone (Mylicon -) 80 mg PO Q4H PRN PRN Reason: GAS - Objective Vital Signs: Vital Signs Temperature 98.4 F 09/05/16 08:30 Pulse Rate 84 09/05/16 08:30 Respiratory Rate 20 09/05/16 08:30 Blood Pressure 143/79 09/05/16 08:30 O2 Sat by Pulse Oximetry (%) 100 08/31/16 16:05 Constitutional: Yes: Well Nourished, Calm Eyes: Yes: Conjunctiva Clear, EOM Intact HENT: Yes: Atraumatic, Normocephalic Neck: Yes: Supple, Trachea Midline Cardiovascular: Yes: Regular Rate and Rhythm Respiratory: Yes: Regular, CTA Bilaterally Gastrointestinal: Yes: Normal Bowel Sounds, Soft Edema: No Wound/Incision: Yes: Clean/Dry, Well Approximated Psychiatric: Yes: Alert, Oriented Labs: CBC, BMP 09/04/16 06:15 09/04/16 06:15 INR, PTT INR 1.42 (0.82-1.09) H 08/31/16 00:52 Problem List - Problems (1) S/P myomectomy Code(s): Z98.890 - OTHER SPECIFIED POSTPROCEDURAL STATES (2) History of bilateral salpingo-oophorectomy (BSO) Code(s): Z90.722 - ACQUIRED ABSENCE OF OVARIES, BILATERAL (3) Pelvic abscess in female Code(s): N73.9 - FEMALE PELVIC INFLAMMATORY DISEASE, UNSPECIFIED (4) Vomiting Code(s): R11.10 - VOMITING, UNSPECIFIED Assessment/Plan POD#5 s/p exploratory laparotomy, myomectomy, BSO, enterolysis for b/l TOA and fibroids - AFVSS - post op ileus - resolving. Pt now with regular BMs and tolerating diet. - pelvic abscess/TOA - s/p surgical removal and pt on IV antibiotics. AFebrile. Leukocytosis resolving. ID following. Await ID recommendations of when to transition to PO antibiotics - once transitioned to PO antibiotics and pt tolerating, for possible discharge home - encourage ambulation - Lovenox for VTE PPx
[2016-09-05] MEDS: DOXYCYCLINE INJECTION 100 MG in DEXTROSE 5%-WATER - 100 ML IVPB SCH (10:00)
[2016-09-05] MEDS: ENOXAPARIN NA (PORCINE) 40 MG/0.4 ML DISP.SYRIN SQ SCH (10:00)
[2016-09-05] MEDS: CEFTRIAXONE 2 GM in DEXTROSE 5%-WATER - 100 ML IVPB SCH (10:00)
[2016-09-05] MEDS: PANTOPRAZOLE SODIUM 40 MG/100 ML PRE-DOCKED IVPB SCH (10:00)
--- NOTE | 2016-09-05 10:22 | PN ---
Progress Note, Physician Chief Complaint: weak History of Present Illness: danika some oral diet. +BM. no n/v. pain controlled. - Current Medication List Current Medications: Active Medications Acetaminophen (Tylenol -) 650 mg PO Q4H PRN PRN Reason: FEVER OR PAIN Last Admin: 09/02/16 14:28 Dose: 650 mg Bisacodyl (Dulcolax Suppository -) 10 mg RC DAILY PRN PRN Reason: CONSTIPATION Last Admin: 09/02/16 10:02 Dose: 10 mg Diltiazem HCl (Cardizem Cd -) 360 mg PO DAILY COUNTS INCLUDE 234 BEDS AT THE [facility] Last Admin: 09/05/16 09:21 Dose: 360 mg Enoxaparin Sodium (Lovenox -) 40 mg SQ DAILY COUNTS INCLUDE 234 BEDS AT THE [facility] Last Admin: 09/04/16 09:25 Dose: Not Given Hydromorphone HCl (Dilaudid -) 4 mg PO Q4H PRN PRN Reason: PAIN Hydromorphone HCl (Dilaudid Injection -) 1 mg IM Q4H PRN PRN Reason: PAIN Metronidazole (Flagyl 500mg Premixed Ivpb -) 100 mls @ 100 mls/hr IVPB Q8H-IV COUNTS INCLUDE 234 BEDS AT THE [facility] Last Admin: 09/05/16 01:59 Dose: 100 mls/hr Sodium Chloride (Normal Saline -) 1,000 mls @ 75 mls/hr IV ASDIR COUNTS INCLUDE 234 BEDS AT THE [facility] Last Admin: 09/04/16 09:00 Dose: Not Given Ceftriaxone Sodium 2 gm/ (Dextrose) 100 mls @ 200 mls/hr IVPB DAILY COUNTS INCLUDE 234 BEDS AT THE [facility] Last Admin: 09/04/16 09:21 Dose: 200 mls/hr Doxycycline Hyclate 100 mg/ (Dextrose) 100 mls @ 50 mls/hr IVPB BID COUNTS INCLUDE 234 BEDS AT THE [facility] Last Admin: 09/04/16 22:06 Dose: 50 mls/hr Ondansetron HCl (Zofran Injection) 4 mg IVPB Q6H PRN PRN Reason: NAUSEA AND/OR VOMITING Last Admin: 09/01/16 19:41 Dose: 4 mg Pantoprazole Sodium (Protonix 40mg Ivpb (Pre-Docked)) 40 mg IVPB DAILY COUNTS INCLUDE 234 BEDS AT THE [facility] Last Admin: 09/04/16 10:00 Dose: 40 mg Simethicone (Mylicon -) 80 mg PO Q4H PRN PRN Reason: GAS - Objective Vital Signs: Vital Signs Temperature 98.4 F 03/28/17 08:30 Pulse Rate 84 09/05/16 08:30 Respiratory Rate 20 09/05/16 08:30 Blood Pressure 143/79 09/05/16 08:30 O2 Sat by Pulse Oximetry (%) 100 08/31/16 16:05 Constitutional: Yes: No Distress, Calm Gastrointestinal: Yes: Soft, Distention, Tenderness (near incision) Labs: CBC, BMP 09/04/16 06:15 09/04/16 06:15 INR, PTT INR 1.42 (0.82-1.09) H 08/31/16 00:52 Problem List - Problems (1) Pelvic abscess in female Assessment/Plan: s/p jerry for toa resolving ileus doing well given magnitude of surgery Code(s): N73.9 - FEMALE PELVIC INFLAMMATORY DISEASE, UNSPECIFIED
--- NOTE | 2016-09-05 13:36 | PN ---
Progress Note (short form) - Note Progress Note: feels better starting to eat +bm less abdominal pain Vital Signs Period Temp Pulse Resp BP Sys/Vann Pulse Ox Last 24 Hr 97.8 F-98.7 F 84-99 18-20 143-158/78-81 cor-rrr lungs decreased bs at bases abd soft,nt, slightly distended, mild tenderness to palpation incision clean and dry-steristrips ext no edema CBC, BMP 09/04/16 06:15 09/04/16 06:15 Microbiology 09/03/16 12:05 Blood - Peripheral Venous Blood Culture - Preliminary NO GROWTH OBTAINED AFTER 48 HOURS, INCUBATION TO CONTINUE FOR 3 DAYS. 09/03/16 12:00 Blood - Peripheral Venous Blood Culture - Preliminary NO GROWTH OBTAINED AFTER 48 HOURS, INCUBATION TO CONTINUE FOR 3 DAYS. 09/03/16 12:30 Urine - Urine Clean Catch Urine Culture - Final NO GROWTH OBTAINED a/p s/p resection of tubo-ovarian abscess doing well switch to po doxycycline continue ceftriaxone/flagyl s/p myomectomy
[2016-09-05] MEDS: DOXYCYCLINE HYCLATE 100 MG CAPSULE PO SCH (17:29)
[2016-09-06] MEDS: METRONIDAZOLE 500 MG PREMIXED 100 ML IVPB SCH (02:12)
--- NOTE | 2016-09-06 08:00 | PN ---
Progress Note, Physician Chief Complaint: ID Doing well No pain no fever ambulating Antibiotics Ceftriaxone metronidazole doxy - Current Medication List Current Medications: Active Medications Acetaminophen (Tylenol -) 650 mg PO Q4H PRN PRN Reason: FEVER OR PAIN Last Admin: 09/02/16 14:28 Dose: 650 mg Bisacodyl (Dulcolax Suppository -) 10 mg RC DAILY PRN PRN Reason: CONSTIPATION Last Admin: 09/02/16 10:02 Dose: 10 mg Diltiazem HCl (Cardizem Cd -) 360 mg PO DAILY [facility] Last Admin: 09/05/16 09:21 Dose: 360 mg Doxycycline Hyclate (Vibramycin -) 100 mg PO BID@1000,1800 [facility] Last Admin: 09/05/16 17:29 Dose: 100 mg Enoxaparin Sodium (Lovenox -) 40 mg SQ DAILY [facility] Last Admin: 09/05/16 10:00 Dose: Not Given Hydromorphone HCl (Dilaudid -) 4 mg PO Q4H PRN PRN Reason: PAIN Hydromorphone HCl (Dilaudid Injection -) 1 mg IM Q4H PRN PRN Reason: PAIN Metronidazole (Flagyl 500mg Premixed Ivpb -) 100 mls @ 100 mls/hr IVPB Q8H-IV [facility] Last Admin: 09/06/16 02:12 Dose: 100 mls/hr Sodium Chloride (Normal Saline -) 1,000 mls @ 75 mls/hr IV ASDIR [facility] Last Admin: 09/04/16 09:00 Dose: Not Given Ceftriaxone Sodium 2 gm/ (Dextrose) 100 mls @ 200 mls/hr IVPB DAILY [facility] Last Admin: 09/05/16 10:00 Dose: 200 mls/hr Ondansetron HCl (Zofran Injection) 4 mg IVPB Q6H PRN PRN Reason: NAUSEA AND/OR VOMITING Last Admin: 09/01/16 19:41 Dose: 4 mg Pantoprazole Sodium (Protonix 40mg Ivpb (Pre-Docked)) 40 mg IVPB DAILY [facility] Last Admin: 09/05/16 10:00 Dose: Not Given Simethicone (Mylicon -) 80 mg PO Q4H PRN PRN Reason: GAS - Objective Vital Signs: Vital Signs Temperature 97.9 F 09/05/16 22:00 Pulse Rate 94 H 09/05/16 22:00 Respiratory Rate 20 09/05/16 22:00 Blood Pressure 146/94 09/05/16 22:00 O2 Sat by Pulse Oximetry (%) 100 08/31/16 16:05 Constitutional: Yes: Well Nourished, No Distress Eyes: Yes: WNL, Conjunctiva Clear HENT: Yes: WNL, Atraumatic Neck: Yes: WNL, Supple Cardiovascular: Yes: Regular Rate and Rhythm, S1, S2. No: Murmur Respiratory: Yes: WNL, Regular, CTA Bilaterally Gastrointestinal: Yes: Soft, Other (incisio clean). No: Tenderness Labs: CBC, BMP 09/04/16 06:15 09/04/16 06:15 INR, PTT INR 1.42 (0.82-1.09) H 08/31/16 00:52 Problem List - Problems (1) History of bilateral salpingo-oophorectomy (BSO) Code(s): Z90.722 - ACQUIRED ABSENCE OF OVARIES, BILATERAL (2) Pelvic abscess in female Code(s): N73.9 - FEMALE PELVIC INFLAMMATORY DISEASE, UNSPECIFIED (3) S/P myomectomy Code(s): Z98.890 - OTHER SPECIFIED POSTPROCEDURAL STATES Assessment/Plan Microbiology 09/03/16 12:30 Urine - Urine Clean Catch Urine Culture - Final NO GROWTH OBTAINED 09/03/16 12:05 Blood - Peripheral Venous Blood Culture - Preliminary NO GROWTH OBTAINED AFTER 48 HOURS, INCUBATION TO CONTINUE FOR 3 DAYS. 09/03/16 12:00 Blood - Peripheral Venous Blood Culture - Preliminary NO GROWTH OBTAINED AFTER 48 HOURS, INCUBATION TO CONTINUE FOR 3 DAYS. Laboratory Tests 09/03/16 09/04/16 09/04/16 12:30 06:15 06:15 WBC 11.5 H Hgb 9.4 L Hct 28.2 L Plt Count 382 ESR 75 H BUN Creatinine Chlamydia Competition Pending N. gonorrhoeae (FABRICE) Pending 09/04/16 06:15 WBC Hgb Hct Plt Count ESR BUN 10 D Creatinine 0.6 D Chlamydia Competition N. gonorrhoeae (FABRICE) Assessment Tuboovarian abscess Day 6 post op doing well Plan Augmentin 875 mg bid Doxycline 100mg bid Above antibiotic for 7 days Birdie HUERTA
[2016-09-06 08:14] LABS: MCH 28.7 pg (25.7-33.7); MCHC 33.5 g/dl (32.0-36.0); MEAN CELL VOLUME 85.6 fl (80-96); MEAN PLT VOLUME 6.7 fl (7.5-11.1); PLATELET COUNT 372 K/MM3 (134-434); RDW 15.4 % (11.6-15.6); WHITE BLOOD COUNT 8.2 K/mm3 (4.0-10.0)
[2016-09-06 09:24] VITALS: BP 133/71; PULSE 86
[2016-09-06] MEDS: DOXYCYCLINE HYCLATE 100 MG CAPSULE PO SCH (09:36)
[2016-09-06] MEDS: ENOXAPARIN NA (PORCINE) 40 MG/0.4 ML DISP.SYRIN SQ SCH (09:40)
[2016-09-06] MEDS: PANTOPRAZOLE SODIUM 40 MG/100 ML PRE-DOCKED IVPB SCH (09:52)
[2016-09-06 14:49] VITALS: TEMP 97.8
--- NOTE | 2016-09-06 14:51 | DS ---
Physical Examination Vital Signs: Vital Signs Temperature 97.8 F 09/06/16 14:00 Pulse Rate 86 09/06/16 09:19 Respiratory Rate 20 09/06/16 09:19 Blood Pressure 133/71 09/06/16 09:19 O2 Sat by Pulse Oximetry (%) 100 08/31/16 16:05 Constitutional: Yes: Well Nourished, No Distress, Calm Eyes: Yes: Conjunctiva Clear, EOM Intact HENT: Yes: Atraumatic, Normocephalic Neck: Yes: Supple, Trachea Midline Cardiovascular: Yes: Regular Rate and Rhythm Respiratory: Yes: Regular, CTA Bilaterally Gastrointestinal: Yes: Normal Bowel Sounds, Soft, Tenderness (appropriate post surgical tenderness) Edema: No Wound/Incision: Yes: Clean/Dry, Well Approximated, Steri Strips Neurological: Yes: Alert, Oriented Psychiatric: Yes: Alert, Oriented Labs: CBC, BMP 09/06/16 07:20 09/04/16 06:15 Discharge Summary Reason For Visit: ENDOMETRIOMA ABDOMINAL PAIN Current Active Problems Abdominal pain (Acute) Endometrioma (Acute) History of bilateral salpingo-oophorectomy (BSO) (Acute) Pelvic abscess in female (Acute) S/P myomectomy (Acute) Sepsis (Acute) Vomiting (Acute) Procedures: Principal: Exploratory laparotomy, abdominal myomectomy, bilateral salpingo oophorectomy Other Procedures: blood transfusion Hospital Course: Patient admitted on 08/31/16 with abdominal pain - noted to have fibroids and possible endometriomas. Pt admitted and underwent an exploratory laparotomy, BSO and abdominal myomectomy on 08/31/16. General surgery consulted intraop for enterolysis. Patient had a post op course complicated by post op ileus and leukocytosis. Post op ileus resolved by 09/04/16. Surgery and infectious disease were following throughout post op course. Pt was on IV antibiotics throughout admission until 09/06/16 when she was transitioned to PO antibiotics and discharged home in stable condition. Condition: Improved - Instructions Diet, Activity, Other Instructions: Dr. Veronica Cid Signal Maintainer Helper discharge instructions Physical activity Resume your normal everyday activity as tolerated but no heavy lifting or strenuous exercise until seen by your surgeon. You may walk unlimited amounts and climb stairs. You may resume driving the car when you feel safe and comfortable behind the wheel. No sexual activity as instructed by Dr. Cid. Wound care If they are tapes on the skin leave them in place. They will peel off in the next 7 to 10 days. Do Not Peel them off. You may shower the day after surgery. If there are tapes present on the skin, you may shower over them. Diet There are no dietary restrictions. Eat healthy, high-fiber foods. Drink 6 to 8 glasses of liquid each day. This will assist in keeping your bowels regular. Pain management You may take Tylenol or Ibuprofen (for example, Motrin, Advil etc.) for pain. If any pain prescription medication is ordered should be taken as prescribed for moderate to severe pain. Call Dr. Cid for any of the following: Severe pain not relieved by medication Fever of 101 or higher Excessive bleeding or drainage on dressing Inability to urinate Call the office at [phone] for an appointment in 7 days. Referrals: Seun Packer MD [Staff Physician] - 1 Week Veronica Cid MD [Staff Physician] - STAFF,NOT ON [Primary Care Provider] - Disposition: HOME - Home Medications Comprehensive Discharge Medication List: Ambulatory Orders Diltiazem HCl [Diltiazem ER] 360 mg PO DAILY 07/14/15 Amoxicillin/Potassium Clav [Augmentin 875-125 Tablet] 1 each PO BID #20 tablet MDD 2 09/06/16 Doxycycline Hyclate 100 mg PO BID #20 capsule MDD 2 09/06/16 Ibuprofen 600 mg PO Q6H #30 tablet MDD 4 09/06/16 Oxycodone HCl/Acetaminophen [Percocet 5-325 mg Tablet -] 1 tab PO Q4H #30 tablet MDD 6 09/06/16
[2016-09-06] MEDS ORDERED: AMOX TR/POT CLAV 875MG/125MG TABLETS (FP) PO SCH (17:30)
--- NOTE | 2016-10-10 10:30 | OP ---
DATE OF OPERATION: 08/31/2016 PREOPERATIVE DIAGNOSIS: Leiomyomatous uterus. OPERATION: Abdominal myomectomy and bilateral salpingo-oophorecetomy and enterolysis by Dr. Noriega. FINDINGS: A 10-cm ovarian abscess and bilaterally tubo-ovarian abscess, a 9-cm myoma removed from 16 cm uterus, pyosalpinx, endometriosis SURGEON: Aramis Sanz MD DETAILER: Halley Braxton MD AIR BRAKE OPERATOR: Erwin Pena Jr., CRNA ANESTHESIA: General. ESTIMATED BLOOD LOSS: 1200 mL. PROCEDURE: Patient was taken to the operating room, placed in supine position, prepped and draped in the usual sterile fashion. A Pfannenstiel skin incision was made with the scalpel. Cautery was then used to go through the layers of abdominal wall to the level of the fascia. Fascia was cut in the midline. Cautery was then used to open the fascia in smiling fashion. Arlette was then used to bluntly and sharply dissect the rectus muscle. The fascial muscle was split in the midline. Peritoneal cavity was then entered and carried up and downward. Exploration of the abdomen revealed a large leiomyomatous uterus 14 cm and a 10- cm left ovarian abscess with also tubo-ovarian abscess noted on the right, as well. hydrosalpinx and pyosalpinx seen. Large amount of pus seen coming out of abscess. copious amount of irrigation done. approximately 9-cm myoma noted in the uterus. The bowel was noted to be severely adherent to the ovarian abscess. An intraoperative consult was then called with general surgeon, Dr. Noriega. Dr. Noriega did enterolysis and removed the bowel off the tubo-ovarian abscess. Upon Dr. Linares completion of his portion of the surgery, a bilateral salpingo-oophorecetomy was performed, and tubes and ovaries were submitted to pathology. Tubes and ovaries had to be removed due to the abscess of ovary, hydrosalpinx and . Attention was then drawn to the uterus where cautery was then used to make an incision in the uterus, and a 9-cm myoma was then enucleated out. Uterus was then closed in layers with 0 Vicryl suture, the last layer being imbricating on the serosa. Hemostasis was achieved. Uterus was then interiorized. Abdominal cavity cleaned with clean lap pads. Peritoneum closed. Fascia was then closed using 0 Vicryl suture in 2 parts. Skin was then closed using 3-0 Biosyn in a subcuticular fashion. Wound was washed and dressed. Patient tolerated the procedure well. Estimated blood loss was 1200 mL. ARAMIS SANZ M.D. [id number] MTDD
== END 2016-09-06 15:20 | disposition home or self-care (01) | DRG 742 ==
LOC: JER 22:24 → SUPCPDRO 22:24 → JERBED 08-31 01:30 → J3W 08-31 04:06
PROVIDERS: ADMIT Obstetrics & Gynecology; ATTEND Obstetrics & Gynecology
PROC: 0UT20ZZ Resection of Bilateral Ovaries, Open Approach (ICD-10-PCS; 2016-08-31)
PROC: 0UN50ZZ Release Right Fallopian Tube, Open Approach (ICD-10-PCS; 2016-08-31)
PROC: 0UN00ZZ Release Right Ovary, Open Approach (ICD-10-PCS; 2016-08-31)
PROC: 0DJD8ZZ Inspection of Lower Intestinal Tract, Via Natural or Artificial Opening Endoscopic (ICD-10-PCS; 2016-08-31)
PROC: 30233N1 Transfusion of Nonautologous Red Blood Cells into Peripheral Vein, Percutaneous Approach (ICD-10-PCS; 2016-08-31)
PROC: 0UB90ZZ Excision of Uterus, Open Approach (ICD-10-PCS; principal; 2016-08-31 10:00)
PROC: 0UT70ZZ Resection of Bilateral Fallopian Tubes, Open Approach (ICD-10-PCS; 2016-08-31 10:00)
DX: D25.9 Leiomyoma of uterus, unspecified (principal); A41.9 Sepsis, unspecified organism; K91.3 Postprocedural intestinal obstruction; N17.9 Acute kidney failure, unspecified; N70.93 Salpingitis and oophoritis, unspecified; N73.6 Female pelvic peritoneal adhesions (postinfective); N73.9 Female pelvic inflammatory disease, unspecified; Y83.9 Surgical procedure, unspecified as the cause of abnormal reaction of the patient, or of later complication, without mention of misadventure at the time of the procedure; D64.9 Anemia, unspecified; I10 Essential (primary) hypertension; N80.1 Endometriosis of ovary; D72.829 Elevated white blood cell count, unspecified; N70.11 Chronic salpingitis
CPT/HCPCS: 36415; 36430; 74020-TC; 80048; 80053; 83735; 85025; 85027; 85610; 85651; 86140; 86850; 86900; 86901; 86922; 87040; 87086; 87491; 87591; 88305-TC; 93005; 93010; 94010; 94760; 99284-25; P9038; P9058